=== PATIENT | male | born 1985 | race Caucasian/White ===

== ENCOUNTER → 2024-01-03 | Outpatient (CLI) | payer OTHER, SELFPAY ==
--- NOTE | 2024-01-03 13:32 | RAD_ITS ---
STUDY: X-RAY - LUMBAR SPINE REASON FOR EXAM: Male, 38 years old. lbp TECHNIQUE: 2 view(s) of the lumbar spine were obtained. COMPARISON: None FINDINGS: There is straightening of the normal lumbar lordosis. There is a minimal levoscoliosis of the lumbar spine. There is a normal alignment of the vertebrae. Normal vertebral bodies and endplates. Normal disc space heights. The soft tissue structures are unremarkable. RAD/Lumbar Spine 2 or 3 Views IMPRESSION: Straightening of the normal lumbar lordosis. Minimal levoscoliosis of the lumbar spine. Electronically Signed: Ag Cuevas MD at 13:57 EST ,
--- OUTSIDE RECORDS SUMMARY | 2024-01-03 15:35 | XMS RPT_ITS | CCD ---
Author Name Unknown Address [address] [place] [address] Organization [facility] Care Team Providers Care Rheostat Assembler Name Role Phone IFTIKHAR FUNEZ Unavailable Unavailable GANGEL, IFTIKHAR Unavailable Unavailable GANGEL, IFTIKHAR Unavailable Unavailable GANMYRTLE JR, IFTIKHAR GENE Unavailable Unavaila ble ARMIN JASSO, IFTIKHAR GENE Unavailable Unavaila ble ARMIN JASSO, IFTIKHAR GENE Unavailable Unavaila Alec Brady MD Primary Care Provider ALEC KWOK Primary Care Unavailable Alec Kwok MD Primary Care Provider Medications Current Medications Medication Drug Class(es) Dates Sig (Normalized) Sig (Original) amoxicillin 875 mg / clavulanate 125 mg oral tablet (2 sources) Penicillin-class Antibacterial Start: 04-27-2023 End: 05-04-2023 take 1 tablet by mouth twice daily amoxicillin-clav ulanic acid (AUGMENTIN) 875-125 mg per tablet Indications: Sinus pain Take 1 tablet by mouth twice daily for 7 days. 14 tablet 0 04/27/2023 05/04/2023 Active Completed/Discontinued Medications Medication Drug Class(es) Dates Sig (Normalized) Sig (Original) fluticasone propionate 0.05 mg/actuat metered dose nasal spray (2 sources) Corticosteroid Start: 04-27-2023 take 2 spray(s) by mouth once daily fluticasone (FLONASE) 50 mcg/actuation nasal spray Use 2 Sprays in each nostril once daily. Rinse mouth after use. 1 Each 0 04/27/2023 Active Problems Problem Classification Problem Date Documented Da te Episodic/Chronic Headache; including migraine (1 source) Chronic mixed headache syndrome; Translations: [Other headache syndrome] Episodic Inflammation; infection of eye (except that caused by tuberculosis or sexually transmitteddisease) (1 source) Bacterial conjunctivitis; Translations: [Unspecified conjunctivitis] Episodic Other male genital disorders (1 source) Secondary erectile dysfunction; Translations: [Male erectile dysfunction, unspecified] Chronic Other nervous system disorders (4 sources) Carpal tunnel syndrome; Translations: [Carpal tunnel syndrome, unspecified upper limb] Onset: 04-15-2021 04-15-2021 Chronic Other upper respiratory disease (1 source) Pain in face; Translations: [Other specified disorders of nose and nasal sinuses] Episodic Substance-related disorders (4 sources) Tobacco dependence syndrome; Translations: [Nicotine dependence, unspecified, uncomplicated] Onset: 04-15-2021 04-15-2021 Chronic Unclassified (1 source) Unknown / UNK(Unknown) Onset: 06-08-2018 Viral infection (2 sources) Anogenital (venereal) warts; Translations: [Anogenital (venereal) warts] Onset: 06-08-2018 Episodic Results Test Name Value Interpretation Reference Range Facil ity Vital Signs Date Time Vital Sign Value Performing Clinician Lachelle castillo 04-27-2023 08:55-0400 Body temperature 98.6 [degF] Antonio Yao APRN.APPEALS ANALYST Work Phone: [facility] 04-27-2023 08:55-0400 Body weight 96.44 kg Antonio Yao APRN.DAISHA Work Phone: [facility] 04-27-2023 08:55-0400 Diastolic blood pressure 86 mm[Hg] Antonio Yao APRN.APPEALS ANALYST Work Phone: [facility] 04-27-2023 08:55-0400 Heart rate 81 /min Antonio Yao APRNIsmaAPPEALS ANALYST Work Phone: [facility] 04-27-2023 08:55-0400 Respiratory rate 18 /min Antonio Yao APRN.APPEALS ANALYST Work Phone: [facility] 04-27-2023 08:55-0400 SaO2% (BldA) [Mass fraction] 98 % Antonio Yao APRN.DAISHA Work Phone: [facility] 04-27-2023 08:55-0400 Systolic blood pressure 140 mm[Hg] Antonio Maximilian DISPATCHER [employer].APPEALS ANALYST Work Phone: [facility] Encounters Encounter Date Encounter Type Care Provider Facility Start: 04-27-2023 End: 04-27-2023 ambulatory [facility] Facility:[facility] Procedures Date Procedure Procedure Detail Performing Clinician Start: 02-13-2022 Ct head/brain w/o contrast material Traykaty Campoverde DISPATCHER [employer].APPEALS ANALYST Work Phone: Start: 03-09-2021 Adult depression screening assessment Vero Calabrese DISPATCHER [employer].APPEALS ANALYST Work Phone: Plan of Treatment Date Care Activity Detail Author Start: 02-06-2027 LIPID SCREEN LIPID SCREEN [facility] Start: 07-23-2023 Influenza vaccination INFLUENZA (Sea son Ended) [facility] Start: 11-22-2022 DEPRESSION ASSESSMENT DEPRESSION ASS ESSMENT [facility] Start: 05-21-2022 Influenza vaccination INFLUENZA (#1) [facility] Payers Date Payer Category Payer Unknown [id number] 2023 Unknown MMO M[employer] PPO [id number] 2023-Present [phone] [address] [place] [address] PPO [id number] 2021 Unknown [employer] PPO [id number] 2021-Present [phone] [address] [place] [address] PPO [id number] Unknown [id number] Social History Date Type Detail Facility Start: 02-06-2022 End: 04-27-2023 Tobacco smoking status NHIS Ex-smoker [facility] Work Phone: End: 01-23-2022 History of tobacco use Current smoker [facility] Work Phone: End: 01-23-2022 History of tobacco use Cigarette Smoker [facility] Work Phone: Start: 02-06-2022 End: 04-27-2023 Cigarettes smoked current (pack per day) - Reported 1 [facility] Start: 02-06-2022 End: 04-27-2023 Tobacco use and exposure Smokeless tobacco non-user [facility] Work Phone: Start: 02-06-2022 End: 04-27-2023 Alcohol intake Current drinker of alcohol (finding) [facility] Start: 03-09-2021 End: 02-01-2022 History SDOH Alcohol Frequency 2 [facility] Start: 03-09-2021 History SDOH Social Connections Phone 4 [facility] Start: 03-09-2021 End: 02-01-2022 History SDOH Social Connections Meetings 1 [facility] Start: 03-09-2021 History SDOH Social Connections Living 8 [facility] Start: 03-09-2021 Education 15 [facility] Start: 1985 Sex Assigned At Male C [facility] Start: 02-03-2022 End: 02-13-2022 Exposure to SARS-CoV-2 (event) Not sure [facility] Clinical Notes 06-01-2018 to 04-27-2023 Telephone Encounter - Tray Campoverde APRN.CNP - 04/27/2023 9:49 AM EDTTelephone Encounter - Hansa Adair LPN - 04/27/2023 9:44 AM EDTPatient Instructions Note Date & Type Note Facility 04-27-2023 Note HNO ID: [id number] Author: Antonio Yao APRN.CNP Service: ? Author Type: Nurse Practitioner Type: Progress Notes Filed: 04/27/2023 9:31 AM Note Text: Subjective HPI HPI Dmitriy Nur is a 37 year old male who presents today for CC of nasal congestion, sinus pressure, right eye redness/drainage. This started 3 days ago. Has tried otc medication for relief. Symptoms are worsened by nothing. Denies hx of environmental allergies. smoker. .Patient presents with: Nasal Congestion: Pt reported sinus pain, (RT) eye irritation x3 days. PAST MEDICAL HISTORY Diagnosis Date Condyloma acuminatum of penis Eczema PAST SURGICAL HISTORY Procedure Laterality Date PAST SURGICAL HISTORY OF cyst removed from chest as a child ALLERGIES Patient has no known allergies. MEDICATIONS sildenafil (VIAGRA) 50 mg tablet Take 1 tablet by mouth as needed (30-60 minutes prior to intercourse). FAMILY HISTORY Problem Relation Age of Onset Cancer Other Paternal Lung CA and Pancreatic CA Heart disease Father on heart lung transplant list Social History Tobacco Use Smoking status: Former Packs/day: 1.00 Types: Cigarettes Quit date: 01/23/2022 Years since quittin.2 Smokeless tobacco: Never Vaping Use Vaping Use: Never used Substance Use Topics Alcohol use: Yes Comment: occasional Drug use: No Review of Systems Constitutional: Negative for chills and fever. HENT: Positive for congestion and sinus pain. Negative for ear discharge, ear pain, nosebleeds and sore throat. Eyes: Positive for discharge and redness. Negative for blurred vision, double vision, photophobia and pain. Respiratory: Negative for cough, shortness of breath and wheezing. Musculoskeletal: Negative for neck pain. Neurological: Negative for headaches. Objective Blood pressure 140/86, pulse 81, temperature 37 ?C (98.6 ?F), temperature source Tympanic, resp. rate 18, weight 96.4 kg (212 lb 9.6 oz), SpO2 98 %. Physical Exam Constitutional: General: He is not in acute distress. Appearance: He is not toxic-appearing or diaphoretic. HENT: Head: Normocephalic and atraumatic. Nose: Nose normal. Right Turbinates: Enlarged. Left Turbinates: Enlarged. Mouth/Throat: Pharynx: Uvula midline. No pharyngeal swelling, oropharyngeal exudate, posterior oropharyngeal erythema or uvula swelling. Eyes: General: Lids are normal. No scleral icterus. Right eye: Discharge present. Left eye: No discharge. Conjunctiva/sclera: Right eye: Right conjunctiva is injected. Left eye: Left conjunctiva is not injected. Pupils: Pupils are equal, round, and reactive to light. Neck: Trachea: Trachea normal. Cardiovascular: Rate and Rhythm: Normal rate and regular rhythm. Heart sounds: Normal heart sounds. Pulmonary: Effort: Pulmonary effort is normal. Breath sounds: Normal breath sounds. Musculoskeletal: Cervical back: Normal range of motion and neck supple. Lymphadenopathy: Cervical: No cervical adenopathy. Right cervical: No superficial cervical adenopathy. Left cervical: No superficial cervical adenopathy. Skin: Findings: No rash. Neurological: Mental Status: He is alert and oriented to person, place, and time. ASSESSMENT/PLAN: 1. Sinus pain - ICD9: 478.19, ICD10: J34.89 (primary diagnosis) Likely viral today, start steroid and flonase If s/s persist/worsen next 5 days fill/take atb - Supportive care with plenty of fluids, rest, and analgesia prn. - Follow up in one week if symptoms persist or worsen. - AMOXICILLIN 875 MG-POTASSIUM CLAVULANATE 125 MG TABLET 2. Bacterial conjunctivitis - ICD9: 372.39, 041.9, ICD10: H10.9 -viral vs bacterial today - see medication orders - course and contagiousness issues discussed, including hand washing. - Instructed to call if high fever, development of periorbital redness or swelling, eye pain, visual changes, concerns or if symptoms persist. - POLYMYXIN B SULFATE 10,000 UNIT-TRIMETHOPRIM 1 MG/ML EYE DROPS Antonio Yao APRN.APPEALS ANALYST [facility] 04-27-2023 Miscellaneous Notes Formattin g of this note is different from the original. The following approved medication requests have been transmitted electronically. Requested Prescriptions Pending Prescriptions Disp Refills sildenafil (VIAGRA) 50 mg tablet 6 tablet 5 Sig: Take 1 tablet by mouth as needed (30-60 minutes prior to intercourse). Tray Campoverde APRN.DAISHA Patient has been identified by name and date of : Yes Patient phones for refill(s): Requested Prescriptions Pending Prescriptions Disp Refills sildenafil (VIAGRA) 50 mg tablet 6 tablet 5 Sig: Take 1 tablet by mouth as needed (30-60 minutes prior to intercourse). Date of last office visit in primary care: 02/06/2022 Visit date not found Please advise. Thank you. Hansa Adair LPN documented in this encounter [facility] 04-27-2023 Instructions Antonio Yao APRN.DAISHA - 04/27/2023 9:31 AM EDT ASSESSMENT/PLAN: 1. Sinus pain - ICD9: 478.19, ICD10: J34.89 (primary diagnosis) Likely viral today, start steroid and flonase If s/s persist/worsen next 5 days fill/take atb - Supportive care with plenty of fluids, rest, and analgesia prn. - Follow up in one week if symptoms persist or worsen. - AMOXICILLIN 875 MG-POTASSIUM CLAVULANATE 125 MG TABLET 2. Bacterial conjunctivitis - ICD9: 372.39, 041.9, ICD10: H10.9 -viral vs bacterial today - see medication orders - course and contagiousness issues discussed, including hand washing. - Instructed to call if high fever, development of periorbital redness or swelling, eye pain, visual changes, concerns or if symptoms persist. - POLYMYXIN B SULFATE 10,000 UNIT-TRIMETHOPRIM 1 MG/ML EYE DROPS documented in this encounter [facility] 04-27-2023 History of Presen t illness Narrative Subjective HPI HPI Dmitriy Nur is a 37 year old male who presents today for CC of nasal congestion, sinus pressure, right eye redness/drainage. This started 3 days ago. Has tried otc medication for relief. Symptoms are worsened by nothing. Denies hx of environmental allergies. smoker. .Patient presents with: Nasal Congestion: Pt reported sinus pain, (RT) eye irritation x3 days. PAST MEDICAL HISTORY Diagnosis Date Condyloma acuminatum of penis Eczema PAST SURGICAL HISTORY Procedure Laterality Date PAST SURGICAL HISTORY OF cyst removed from chest as a child ALLERGIES Patient has no known allergies. MEDICATIONS sildenafil (VIAGRA) 50 mg tablet Take 1 tablet by mouth as needed (30-60 minutes prior to intercourse). FAMILY HISTORY Problem Relation Age of Onset Cancer Other Paternal Lung CA and Pancreatic CA Heart disease Father on heart lung transplant list Social History Tobacco Use Smoking status: Former Packs/day: 1.00 Types: Cigarettes Quit date: 01/23/2022 Years since quittin.2 Smokeless tobacco: Never Vaping Use Vaping Use: Never used Substance Use Topics Alcohol use: Yes Comment: occasional Drug use: No Review of Systems Constitutional: Negative for chills and fever. HENT: Positive for congestion and sinus pain. Negative for ear discharge, ear pain, nosebleeds and sore throat. Eyes: Positive for discharge and redness. Negative for blurred vision, double vision, photophobia and pain. Respiratory: Negative for cough, shortness of breath and wheezing. Musculoskeletal: Negative for neck pain. Neurological: Negative for headaches. Objective Blood pressure 140/86, pulse 81, temperature 37 C (98.6 F), temperature source Tympanic, resp. rate 18, weight 96.4 kg (212 lb 9.6 oz), SpO2 98 %. Physical Exam Constitutional: General: He is not in acute distress. Appearance: He is not toxic-appearing or diaphoretic. HENT: Head: Normocephalic and atraumatic. Nose: Nose normal. Right Turbinates: Enlarged. Left Turbinates: Enlarged. Mouth/Throat: Pharynx: Uvula midline. No pharyngeal swelling, oropharyngeal exudate, posterior oropharyngeal erythema or uvula swelling. Eyes: General: Lids are normal. No scleral icterus. Right eye: Discharge present. Left eye: No discharge. Conjunctiva/sclera: Right eye: Right conjunctiva is injected. Left eye: Left conjunctiva is not injected. Pupils: Pupils are equal, round, and reactive to light. Neck: Trachea: Trachea normal. Cardiovascular: Rate and Rhythm: Normal rate and regular rhythm. Heart sounds: Normal heart sounds. Pulmonary: Effort: Pulmonary effort is normal. Breath sounds: Normal breath sounds. Musculoskeletal: Cervical back: Normal range of motion and neck supple. Lymphadenopathy: Cervical: No cervical adenopathy. Right cervical: No superficial cervical adenopathy. Left cervical: No superficial cervical adenopathy. Skin: Findings: No rash. Neurological: Mental Status: He is alert and oriented to person, place, and time. ASSESSMENT/PLAN: 1. Sinus pain - ICD9: 478.19, ICD10: J34.89 (primary diagnosis) Likely viral today, start steroid and flonase If s/s persist/worsen next 5 days fill/take atb - Supportive care with plenty of fluids, rest, and analgesia prn. - Follow up in one week if symptoms persist or worsen. - AMOXICILLIN 875 MG-POTASSIUM CLAVULANATE 125 MG TABLET 2. Bacterial conjunctivitis - ICD9: 372.39, 041.9, ICD10: H10.9 -viral vs bacterial today - see medication orders - course and contagiousness issues discussed, including hand washing. - Instructed to call if high fever, development of periorbital redness or swelling, eye pain, visual changes, concerns or if symptoms persist. - POLYMYXIN B SULFATE 10,000 UNIT-TRIMETHOPRIM 1 MG/ML EYE DROPS Antonio Yao APRN.CNP documented in this encounter [facility] 02-13-2022 Miscellaneous Notes Pt notified. Marianna Egan Ma Can you please call the patient and let him know that Tray is out of the office at this time. However I reviewed his CT scan results. Results were all normal. No further testing needed at this time. Please let me know if he has any questions. Thank you. Vero Calabrese APRN.CNP documented in this encounter [facility] 02-13-2022 History of Presen t illness Narrative Radiology Service Progress Note PATIENT NAME: Dmitriy Nur DATE OF SERVICE: February 13, 2022 TIME: 4:13 PM PATIENT IDENTITY VERIFICATION COMPLETED USING TWO (2) IDENTIFIERS: Name and Date of confirmed by patient verbally. FALL SCREENING: Has the patient had 2 falls in the last year or 1 fall with injury or currently using an Ambulatory Assistive Device (Walker, Cane, Wheelchair, Crutches, etc.)? No PATIENT GENDER DATA: Male PATIENT RELEVANT IMPLANT DATA REVIEWED: Not Applicable RADIOLOGY DEPARTMENT: CT; Exam(s) Completed: Brain PERIPHERAL IV DATA: Not applicable SIGNED BY: RT Andrzej(R) February 13, 2022 4:13 PM documented in this encounter [facility] 04-23-2021 Note HNO ID: [id number] Author: ANTOINE Tang Service: ? Author Type: Systems Project Manager Type: Anesthesia Procedure Notes Filed: 04/23/2021 7:52 AM Note Text: ANESTHESIOLOGY PROCEDURE NOTE Airway General Information Procedure Start Time/Medication Administration: 04/23/2021 7:45 AM Patient location during procedure: OR Patient identity confirmed: arm band Indications and Patient Condition Preoxygenated: yes Patient position: sniffing Indications for airway management: anesthesia Method: asleep Final Airway Details Final airway type: supraglottic airway Number of attempts at approach: 1 Ventilation between attempts: none Final Supraglottic Airway: IGEL Size 4 Seal Adequate: yes Airway not difficult SIGNATURE: ANTOINE Tang PATIENT NAME: Dmitriy Nur DATE: April 23, 2021 TIME: 7:51 AM CSN: [id number] [facility] documented as of this encounter (statuses as of 02/13/2022) [facility] History of Past illness Narrative* Problem Noted Date Resolved Date Genital warts 06/01/2018 06/08/2018 Overview: Added automatically from request for surgery [id number] documented as of this encounter (statuses as of 02/14/2022) [facility] History of Past illness Narrative* Problem Noted Date Resolved Date Genital warts 06/01/2018 06/08/2018 Overview: Added automatically from request for surgery [id number] documented as of this encounter (statuses as of 04/27/2023) [facility] History of Past illness Narrative* Problem Noted Date Resolved Date Genital warts 06/01/2018 06/08/2018 Overview: Added automatically from request for surgery [id number] documented as of this encounter (statuses as of 04/27/2023) [facility] note* Diagnosis Chronic mixed headache syndrome Other headache syndromes documented in this encounter [facility] note* Diagnosis Sinus pain- Primary Other diseases of nasal cavity and sinuses Bacterial conjunctivitis Other conjunctivitis documented in this encounter [facility] note* Diagnosis ED (erectile dysfunction) of organic origin Impotence of organic origin documented in this encounter [facility] Summary Purpose Family History No Family History Records FoundNo Family History Records FoundNo Family History Records FoundNo Family History Records Found Advance Directives Documents on File Type Date Recorded Patient Chemical Mixer Expl anation Advance Directive(s) 04/23/2021 11:21 AM Advance Directive(s) 04/08/2021 11:37 AM Advance Directive(s) 06/08/2018 8:54 AM Documents on File Type Date Recorded Patient Chemical Mixer Expl anation Advance Directive(s) 04/23/2021 11:21 AM Advance Directive(s) 04/08/2021 11:37 AM Advance Directive(s) 06/08/2018 8:54 AM Reason for Referral Specialty Diagnoses / Procedures Referred By Alli alicia Referred To Contact CT IMAGING Diagnoses Chronic mixed headache syndrome Procedures CT BRAIN WO IVCON CT HEAD/BRAIN W/O CONTRAST MATERIAL Tray Campoverde APRN.APPEALS ANALYST [address] [place] [address] Ct Imaging Referral ID Status Reason Start Date Expiration Date V isits Requested Visits Authorized [id number] Closed Auto-Generate d Referral 02/13/2022 11/21/2022 1 1 Additional Source Comments (unrecognized sect ion and content) No Status Records FoundNo Status Records FoundNo Status Records FoundNo Status Records Found INFORMATION SOURCE (unrecogn ized section and content) DATE CREATED AUTHOR AUTHOR'S ORGANIZ ATION 06/10/2018 [facility] DATE CREATED AUTHOR AUTHOR'S ORGANIZ ATION 04/23/2021 [facility] DATE CREATED AUTHOR AUTHOR'S ORGANIZ ATION 05/02/2023 [facility] Source Comments (unrecognize d section and content) In the event this informatio n is protected by the Federal Confidentiality of Alcohol and Drug Abuse Patient Records regulations: The Federal rules restrict any use of the information to criminally investigate or prosecute any alcohol or drug abuse patient.[facility] the event this information is protected by the Federal Confidentiality of Alcohol and Drug Abuse Patient Records regulations: The Federal rules restrict any use of the information to criminally investigate or prosecute any alcohol or drug abuse patient.[facility] the event this information is protected by the Federal Confidentiality of Alcohol and Drug Abuse Patient Records regulations: The Federal rules restrict any use of the information to criminally investigate or prosecute any alcohol or drug abuse patient.[facility] the event this information is protected by the Federal Confidentiality of Alcohol and Drug Abuse Patient Records regulations: The Federal rules restrict any use of the information to criminally investigate or prosecute any alcohol or drug abuse patient.[facility] Reason for Visit (unrecogniz ed section and content) Reason Comments Radiology CT Specialty Diagnoses / Procedures Referred By Alli t Referred To Contact CT IMAGING Diagnoses Chronic mixed headache syndrome Procedures CT BRAIN WO IVCON CT HEAD/BRAIN W/O CONTRAST MATERIAL Tray Campoverde APRN.APPEALS ANALYST [address] [place] [address] Ct Imaging Referral ID Status Reason Start Date Expiration Date V isits Requested Visits Authorized [id number] Closed Auto-Generate d Referral 02/13/2022 11/21/2022 1 1 Reason Comments Nasal Congestion Pt reported sinus pa in, (RT) eye irritation x3 days. Reason Onset Date Comments Refill Request 04/27/2023 Care Teams (unrecognized sec tion and content) Rheostat Assembler Relationship Specialty Start Date End Date Alec Kwok MD [address] [place] [address] PCP - General Family Practice 02/05/22 Rheostat Assembler Relationship Specialty Start Date End Date Alec Kwok MD [address] [place] [address] PCP - General Family Medicine 02/05/22 FOR RECORDS PERTAINING TO PATIENTS WHO ARE OR HAVE BEEN ENROLLED IN A CHEMICAL DEPENDENCY/SUBSTANCEABUSE PROGRAM, SOME INFORMATION MAY BE OMITTED. This clinical summary was aggregated from multiple sources. Caution should be exercised in using it in the provision of clinical care. This summary normalizes information from multiple sources, and as a consequence, information in this document may materially change the coding, format and clinical context of patient data. In addition, data may be omitted in some cases. CLINICAL DECISIONS SHOULD BE BASED ON THE PRIMARY CLINICAL RECORDS. [facility] [email or web address] provides no warranty or guarantee of the accuracy or completeness of information in this document.
[2024-01-03 16:10] LABS: Bacteria 0 SEEN /hpf (None Seen); Mucous, Urine 0 SEEN /hpf (<or=2+); Squamous Epithelial Cells - UA 0 SEEN /hpf (0-5); White Blood Cells 0 SEEN /hpf (0-5)
[2024-01-03 16:35] LABS: Color, Urine Yellow (Yellow); Glucose, Dipstick Normal (Normal); Ketone-Dipstick Negative (Negative); Leukocyte Esterase-Dipstick Negative /ul (Negative); Nitrite-Dipstick Negative (Negative); Occult Blood-Urine 25 /ul (Negative); Protein-Dipstick Negative (Negative); Urine Bilirubin Dipstick Negative (Negative); Urine Clarity Clear (Clear); Urine Urobilinogen Normal (Normal)
[2024-01-03 16:46] LABS: Red Blood Cells-Urine 0-5 SEEN /hpf (0-5)
== END | disposition home or self-care (01) ==
PROVIDERS: PCP Nurse Practitioner Family; Referring Provider Physician Assistant; Visit Provider Physician Assistant
DX: R30.0 Dysuria (principal)
CPT/HCPCS: 72100; 81001; 87086